=== PATIENT | male | born 1995 | race Caucasian/White ===

== ENCOUNTER 2017-06-13 13:22 | Emergency (ER) | payer SELFPAY ==
[~2017-06-13] VITALS: Ht 170.2 cm; Wt 62.0 kg
--- NOTE | 2017-06-13 13:27 | PD ---
Physical Exam Time Seen by Provider: 13:27 Narrative 21 y/o male here with sharp R hip pain since yesterday. Denies any specific injury. Vital signs reviewed. Seen at triage desk. Awaiting bed placement. [facility] Medical Record Reviewed: Yes Supervised Visit with ROSHAN: Janusz Weber Jun 13, 2017 13:27
[2017-06-13 13:30] VITALS: BP 146/75; PULSE 68; RESP 18; TEMP 98.7; O2SAT 99
[2017-06-13] MEDS ORDERED: predniSONE 20 MG TAB PO ONE (14:45)
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
[2017-06-13] MEDS ORDERED: PRED20 PO (14:50)
== END 2017-06-13 15:05 | disposition home or self-care (01) ==
LOC: NEPK 13:22
DX: M16.51 Unilateral post-traumatic osteoarthritis, right hip (principal)
CPT/HCPCS: 99283; J7512